=== PATIENT | male | born 1955 | race African-American/Black ===

== ENCOUNTER 2019-11-29 17:32 | Inpatient (IN) | payer BC ==
[~2019-11-29] VITALS: Ht 170.2 cm; Wt 93.4 kg
[~2019-11-29 17:32] MED LIST: COREG CR20 MG; GLUCOPHAGE500 MG PO; KLOR-CON; LASIX 40 MG TAB40 MG; NAPROSYN500 MG PO; NORCO 5-325 TA1 EACH PO; NORVASC 5 MG TAB5 MG; PREVACID
[2019-11-29 17:33] VITALS: BP 192/90
--- NOTE | 2019-11-29 18:14 | NUR ---
PT'S ADDRESS [address] [place] [place] [address] PT'S PHONE NUMBER [phone]
[2019-11-29 20:51] LABS: ABSOLUTE NEUTROPHILS 3.3 thou/uL (1.4-8.2); BASOPHILS 0.3 % (0.0-2.0); EOSINOPHILS 0.1 % (0.0-3.0); HEMATOCRIT 41.3 % (42.0-52.0); HEMOGLOBIN 13.6 gm/dL (14.0-18.0); LYMPHOCYTES 10.5 % (24.0-44.0); MCHC 32.9 g/dL (28.0-37.0); MONOCYTES 11.1 % (1.0-8.0); PLATELET COUNT 198 thou/uL (150-400); RBC 4.69 mil/uL (4.50-6.00); RDW 12.9 % (10.5-14.5); WBC 4.2 thou/uL (4.0-11.0)
[2019-11-29 21:09] LABS: CALCIUM 8.2 mg/dL (8.5-10.1); CREATININE 0.9 mg/dL (0.7-1.3); POTASSIUM 3.6 mmol/L (3.5-5.1)
[2019-11-29 21:15] LABS: ALBUMIN 2.5 g/dL (3.4-5.0); TOTAL BILIRUBIN 0.4 mg/dL (0.2-1.0); TOTAL PROTEIN 6.9 g/dL (6.4-8.2)
[2019-11-29] MEDS ORDERED: JANUMET 50-1,01 EACH PO (21:59)
[2019-11-29] MEDS ORDERED: TOPROL XL100 MG PO (22:00)
[2019-11-29] MEDS ORDERED: LOW DOSE ASPIRI81 M1 PO (22:01)
[2019-11-29] MEDS ORDERED: LANSOPRAZOLE30 MG PO (22:02)
[2019-11-29 22:14] VITALS: BP 170/89
[2019-11-29 22:18] VITALS: BP 170/89
[2019-11-29 22:52] VITALS: BP 151/72
[2019-11-29 23:25] VITALS: BP 177/93
[2019-11-29] MEDS ORDERED: ACETAMINOPHEN-1 EAC2 PO (23:25)
[2019-11-29] MEDS ORDERED: OXYCODONE HCL 55 MG PO (23:26)
[2019-11-30 03:55] VITALS: BP 159/92
--- NOTE | 2019-11-30 05:55 | NUR ---
PT ARRIVED FROM ER VIA CART, PLACED IN ROOM 356. ADMISSION ASSESSMENTS COMPLTED. PT REPORTING GENERALIZED PAIN THAT WAS 10/10 PLUS RIGHT HIP PAIN THAT WAS 10/10 "BUT JUST WHEN I'M MOVING." RIGHT HIP SURGICAL WOUND (FROM October) IS WELL APPROXIMATED WITHOUT REDNESS OR EDEMA. NOTED SOME FLAKY SKIN AT THT SITE. ORDERS IN PROGRESS.
[2019-11-30 05:58] LABS: HEMATOCRIT 38.3 % (42.0-52.0); HEMOGLOBIN 12.8 gm/dL (14.0-18.0); MCH 29.2 pg (26.0-34.0); MCHC 33.6 g/dL (28.0-37.0); MCV 87.1 fL (80.0-100.0); RBC 4.39 mil/uL (4.50-6.00); RDW 12.6 % (10.5-14.5); WBC 2.6 thou/uL (4.0-11.0)
[2019-11-30 06:41] LABS: CALCIUM 7.8 mg/dL (8.5-10.1); CREATININE 0.9 mg/dL (0.7-1.3)
--- NOTE | 2019-11-30 07:11 | EKG ---
[facility] [place] [address] ELECTROCARDIOGRAM REPORT Name: KEON RICHARDSON JR Room #: 356-P ADM IN M.R.#: [id number] Admission: 11/29/19 Attend Phys: Tapan Beal MD Discharge: Date of : 55 Report #: [id number] THIS REPORT FOR: cc: Riki Wiggins MD, Brian G. MD Santiago, Patrick MD [facility] ~ THIS REPORT FOR: //name// 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
[2019-11-30 08:18] VITALS: BP 143/77
--- NOTE | 2019-11-30 10:24 | NUR ---
PT WAS SEEN THIS MORNING BY , PT STILL HAVING MYALGIA ASSOCIATED WITH COUGHING, PT ALSO STATED OF HAVING PAIN AT THE L HIP, PINS AND NEEDLES. CODEINE WAS PROVIDED PER ORDER, WILL CONSULT REGARDING THE NERVE PAIN AT THE L HIP SITE. NO OTHER CONCERNS FROM THE PT AT THIS TIME. CONTINUING TO MONITOR.
--- NOTE | 2019-11-30 14:12 | NUR ---
INITIAL ASSESSMENT: SW reviewed chart and spoke with nursing and attending physician. Pt was admitted from home due to pnemonia/hypoxia. Pt is in Enhanced Isolation for COVID-19. Pt's test is positive. Pt has been febrile and is on 2L of O2. Pt is on IV abx. SW placed call to pt's room. No answer. Per chart, pt lives at home. Prior to admission, pt was independent with ADLs. SW to follow up with pt at a later time and assist as needed with discharge planning.
[2019-11-30 16:16] VITALS: BP 153/82
[2019-11-30 20:26] VITALS: BP 148/82
[2019-12-01 05:00] VITALS: BP 169/98
[2019-12-01 05:35] LABS: ABSOLUTE NEUTROPHILS 4.2 thou/uL (1.4-8.2); BASOPHILS 0.3 % (0.0-2.0); EOSINOPHILS 0.2 % (0.0-3.0); HEMATOCRIT 41.4 % (42.0-52.0); HEMOGLOBIN 13.6 gm/dL (14.0-18.0); MCH 28.9 pg (26.0-34.0); MCHC 32.8 g/dL (28.0-37.0); MCV 88.3 fL (80.0-100.0); MONOCYTES 5.3 % (1.0-8.0); PLATELET COUNT 230 thou/uL (150-400); POLYS 80.2 % (36.0-66.0); RBC 4.68 mil/uL (4.50-6.00); RDW 12.9 % (10.5-14.5); WBC 5.3 thou/uL (4.0-11.0)
--- NOTE | 2019-12-01 07:00 | NUR ---
requires only minimal assist with ambulation, steady gait. complain of pain, to generalized pain. po pain medcation, effective for pain control. careplan reviewed.
[2019-12-01 08:08] VITALS: BP 170/83
[2019-12-01 12:23] LABS: D-DIMER 0.71 ug/mLFEU (0.19-0.50)
[2019-12-01 12:28] LABS: FIBRINOGEN 422.1 mg/dL (210-360)
[2019-12-01 13:03] VITALS: BP 149/79
--- NOTE | 2019-12-01 15:08 | NUR ---
SW reviewed chart and spoke with nursing and attending physician. Pt remains in Enhanced Isolation due to COVID-19. Pt is febrile and on 2L of O2. Pt is on IV abx. Pt to start course of Remdesivir today. No weekend discharge planned. SW spoke with pt via phone. Introduced role of SW. Pt is alert/orientated. Pt reports he lives at home alone. Prior to admission, pt was independent with ADLs. Pt has a cane and walker if needed. Pt has used HH in the past, but is unsure of provider. Pt's PCP is Dr. Riki Wiggins. Pt's goal is to return home when medically stable. SW is following to assist as needed with discharge planning.
[2019-12-01 15:40] VITALS: BP 167/87
[2019-12-01 19:16] VITALS: BP 154/86
[2019-12-02 03:17] VITALS: BP 171/103
[2019-12-02 05:51] LABS: HEMATOCRIT 40.6 % (42.0-52.0); HEMOGLOBIN 13.1 gm/dL (14.0-18.0); MCH 28.6 pg (26.0-34.0); MCHC 32.4 g/dL (28.0-37.0); MCV 88.2 fL (80.0-100.0); RBC 4.6 mil/uL (4.50-6.00); WBC 3.6 thou/uL (4.0-11.0)
[2019-12-02 06:14] LABS: ALBUMIN 1.9 g/dL (3.4-5.0); CALCIUM 7.7 mg/dL (8.5-10.1); CREATININE 0.7 mg/dL (0.7-1.3); POTASSIUM 3.7 mmol/L (3.5-5.1); TOTAL BILIRUBIN 0.3 mg/dL (0.2-1.0); TOTAL PROTEIN 6.1 g/dL (6.4-8.2)
--- NOTE | 2019-12-02 06:17 | NUR ---
BLOOD PRESSURE CONTINUE TO INCREASE,RECIEVED ORDER RO DISCONTINUE IV FLUIDS TONIGHT. PO TYLENOL #3 EFFECTIVE FOR PAIN CONTROL. NEEDS ENCOURAGING WITH FLUIDS, AND TURNS Q2.
[2019-12-02 08:15] VITALS: BP 150/81
[2019-12-02 16:14] VITALS: BP 147/84
[2019-12-02 19:17] VITALS: BP 142/78
--- NOTE | 2019-12-02 21:55 | NUR ---
PT RESTING IN BED WATCHING MOVIE. O2 PER NC. DISCUSSED PT USING URINAL VS WALKING TO BR SINCE SOA REPORTED WHEN NOT KEEPING NC IN. LUNGS WITH WHEEZES, BLE EDEMA. HS SNACK PROVIDED. PRN FOR BILAT HIP DISCOMFORT AND MUSCLES SORE FROM COUGHING.
[2019-12-03 03:49] VITALS: BP 157/84
[2019-12-03 05:56] LABS: ALBUMIN 2.3 g/dL (3.4-5.0); DIRECT BILIRUBIN 0.1 mg/dL (<0.1-0.2); TOTAL BILIRUBIN 0.2 mg/dL (0.2-1.0)
[2019-12-03 08:20] VITALS: BP 151/85
[2019-12-03 16:08] VITALS: BP 148/80
--- NOTE | 2019-12-03 16:57 | NUR ---
RN HAS ASSUMED PT'S CARE AT 0700AM, PT IS A&OX3, PT IS ON O2 3L/MIN/NC TO KEEP O2SAT 93-96%, PT'S VS ARE STABLE, PT IS CONTINUING IV ABX, PT HAS SOB WITH ACTIVITIES,PT DENIES PAIN AND N/V AT THIS TIME, PT STAYS ISOLATION FOR POSITIVE COVID.
[2019-12-03 19:21] VITALS: BP 150/80
--- NOTE | 2019-12-03 21:40 | NUR ---
PT RESTING ON COUCH WATCHING TV. PT INSISTED ON REMAINING ON ROOM AIR, SAT 95% AT REST. IV MEDS PROVIDED. PRN FOR LEG AND COUGH DISCOMFORT PROVIDED. PT PROVIDED HS SNACK. NO SOA NOTED WITH CONVERSATION, PT REPORTS FEELING IMPROVED.
[2019-12-04 02:59] VITALS: BP 160/83
[2019-12-04 04:06] VITALS: BP 169/89
[2019-12-04 06:19] LABS: DIRECT BILIRUBIN 0.1 mg/dL (<0.1-0.2); TOTAL BILIRUBIN 0.2 mg/dL (0.2-1.0); TOTAL PROTEIN 5.9 g/dL (6.4-8.2)
[2019-12-04 07:41] VITALS: BP 148/66
--- NOTE | 2019-12-04 13:28 | NUR ---
SW reviewed chart and spoke with nursing and attending physician. Pt remains in Enhanced Isolation due to COVID-19. Pt is afebrile and on 2L of O2. Pt is on IV abx and completing course of Remdesivir. PT/OT ordered to evaluate pt for discharge needs. Pt will need a rest/exercise oximetry to determine home O2 needs prior to discharge. SW is following to assist as needed with discharge planning.
--- NOTE | 2019-12-04 19:25 | NUR ---
RN HAS ASSUMED PT'S CARE AT 0700AM , PT IS A&OX3, PT IS CONTINUING IV ABX AND IV REMDESIVIR , PT'S VS ARE STABLE, PT IS ON O2 2L/MIN/NC, PT HAS SOME COUGHING AND SOB WITH ACTIVITIES, PT IS CONTINUING ISOLATION FOR POSITIVE COVID.
[2019-12-04 19:27] VITALS: BP 165/84
--- NOTE | 2019-12-04 21:13 | NUR ---
PT PROGRESSONG TOWARDS D/C GOALS. BP MODERSATELY ELEVATED. HUMAN RESOURCES PROFESSIONAL NOTIFIED. NO ORDERS GIVEN FOR NOW. PT C/O SORE THROAT. WILL GIVE CEPACOL LOZENGES ORDERED. BS DIMINISHED UNLABORED ON 2.5 L NC. WILL CONTINUE TO MOITOR FOR CHANGES.
--- NOTE | 2019-12-04 21:40 | NUR ---
PT C/O BACK& RIB PAIN BOTH SIDES 08/15. MEDICATED WITH 1 T#3. CEPACOLLOZENGE GIVEN FOR C/O SORE THROAT. MUCINEX GIVEN FOR COUGH.
--- NOTE | 2019-12-04 23:27 | NUR ---
PT RESTING QUIETLY. NO S/S DISTRESS.
[2019-12-05 04:34] VITALS: BP 177/92
--- NOTE | 2019-12-05 05:06 | NUR ---
NOTIFIED [place] OF BP 177/92. NORVASC GIVEN EARLY THIS AM REQUESTED. TYLENOL WITH CODEINE GIVEN FOR RIB PAIN ON BOTH SIDES AND BACK PAIN.
[2019-12-05 05:26] LABS: BASOPHILS 0.4 % (0.0-2.0); HEMATOCRIT 41.9 % (42.0-52.0); HEMOGLOBIN 13.7 gm/dL (14.0-18.0); LYMPHOCYTES 11.5 % (24.0-44.0); MCH 28.9 pg (26.0-34.0); MCHC 32.8 g/dL (28.0-37.0); MCV 88.2 fL (80.0-100.0); POLYS 82.1 % (36.0-66.0); RBC 4.76 mil/uL (4.50-6.00); RDW 13.2 % (10.5-14.5); WBC 7.3 thou/uL (4.0-11.0)
[2019-12-05 05:36] LABS: ALBUMIN 2.3 g/dL (3.4-5.0); CALCIUM 8.1 mg/dL (8.5-10.1); CREATININE 0.8 mg/dL (0.7-1.3); PLATELET COUNT 313 thou/uL (150-400); POTASSIUM 3.5 mmol/L (3.5-5.1); TOTAL BILIRUBIN 0.3 mg/dL (0.2-1.0); TOTAL PROTEIN 6.3 g/dL (6.4-8.2)
--- NOTE | 2019-12-05 06:29 | NUR ---
CORRECTION PT C/O BACK AND HIP PAIN NORMA TONIGHT /10. MEDICAED WITH T#3 WITH ADEQUATE RELIEF OBTAINED. PT FELL BACK ASLEEP.
[2019-12-05 07:35] VITALS: BP 162/86
[2019-12-05] MEDS ORDERED: MUCINEX600 MG PO (08:54)
[2019-12-05] MEDS ORDERED: PREDNISONE 5 MG5 M1 PO (08:56)
[2019-12-05] MEDS ORDERED: APAP W/CODEINE1 TA2 PO (10:38)
--- NOTE | 2019-12-05 11:15 | NUR ---
VASYL reviewed chart and spoke with nursing. Discharge order entered. Pt remains in Enhanced Isolation due to COVID-19. Pt is completing course of Remdesivir today. Pt is afebrile and on 2L of O2. Pt to be taken off O2. SW spoke with pt via phone to discuss discharge plan. Pt states that he was unaware of the discharge order. Pt states he thought he was discharging home tomorrow. Attending physician to eval pt. Pt reports he will have transportation available. VASYL is following to assist as needed with discharge planning.
[2019-12-05 14:04] VITALS: BP 162/86
[2019-12-05 16:11] VITALS: BP 162/86
--- NOTE | 2019-12-05 16:12 | NUR ---
PT TITRATED DOWN ON OXYGEN THIS AM. ABLE TO MAINTAIN SATS ON ROOM AIR. PT AMBULATING AROUND ROOM. EDUCATED ON LIMITING ACTIVITY TO WHAT IS TOLERATED AND NOT TO OVER EXERT SELF. LAST DOSE OF REMDESIVIR GIVEN THIS AM. DICHARGE ORDERS RECIEVED. PATIENT EDUCATED ON NEED TO SELF QUARENTINE FOR 14 DAYS. PRESCRIPTIONS SENT TO PHARMACY. DISCHARGE PACKET REVIEWED WITH PATIENT, VOICES NO QUESTIONS OR CONCERNS. IV DISCONTINUED. TELE MONITOR OFF. LEFT FACILITY WITH DAUGHTER.
== END 2019-12-05 16:15 | disposition home or self-care (01) | DRG 177 ==
LOC: ER 17:32 → EROBS 21:49 → 3W 21:49
PROVIDERS: Emergency Medicine; Nurse Practitioner Family; Specialist; ADMIT Hospitalist; ATTEND Hospitalist
PROC: XW033E5 Introduction of Remdesivir Anti-infective into Peripheral Vein, Percutaneous Approach, New Technology Group 5 (ICD-10-PCS; principal; 2019-12-01)
DX: U07.1 COVID-19 (principal); J12.89 Other viral pneumonia; J96.01 Acute respiratory failure with hypoxia; I10 Essential (primary) hypertension; E11.9 Type 2 diabetes mellitus without complications; K21.9 Gastro-esophageal reflux disease without esophagitis; Z96.641 Presence of right artificial hip joint; M79.10 Myalgia, unspecified site; Z90.49 Acquired absence of other specified parts of digestive tract; Z88.8 Allergy status to other drugs, medicaments and biological substances; Z79.899 Other long term (current) drug therapy
CPT/HCPCS: 10080